=== PATIENT | male | born 1980 | race Caucasian/White ===

== ENCOUNTER 2022-09-19 11:00 | Emergency (ER) | payer BC ==
[2022-09-19 11:30] VITALS: TEMP 98.3
[2022-09-19] MEDS ORDERED: PANTOPRAZOLE 40 MG/10 ML VIAL IVP STA (11:40)
[2022-09-19] MEDS ORDERED: SODIUM CHLORIDE 0.9% 1,000 ML IV STA (11:40)
--- NOTE | 2022-09-19 11:45 | ED ---
Abdominal Pain HPI - General Chief Complaint: Abdominal Pain Stated Complaint: poss appy Time Seen by Provider: 09/19/22 11:31 Source: patient, RN notes reviewed, old records reviewed Mode of arrival: ambulatory - History of Present Illness Initial Comments: Nontoxic-appearing 42-year-old male presents to the emergency room sent by his primary care doctor for evaluation and possible appendicitis. Patient states he developed abdominal pain that was periumbilical yesterday with nausea. Pain progressively getting worse throughout the day today. Denies any fevers. Nausea but no vomiting. Normal bowel movement this morning. Does have a history of bilateral inguinal hernia repair. Is a 15 cigarette a day smoker. MD Complaint: abdominal pain -: days(s) (2) Location: periumbilical Migration to: no migration Severity scale (1-10): 4 Quality: aching Consistency: constant Improves With: nothing Associated Symptoms: nausea, other (Decreased appetite) - Related Data Previous Rx's Medication Instructions Recorded Famotidine [Pepcid] 20 mg PO BID #28 tablet 09/19/22 Allergies Allergy/AdvReac Type Severity Reaction Status Date / Time lidocaine Allergy Unknown Verified 09/19/22 11:30 [From Zilacaine Patch] Review of Systems ROS Statement: Those systems with pertinent positive or pertinent negative responses have been documented in the HPI. ROS Other: All systems not noted in ROS Statement are negative. Past Medical History Past Medical History: No Reported History History of Any Multi-Drug Resistant Organisms: None Reported Past Surgical History: Hernia Repair Past Psychological History: No Psychological Hx Reported Smoking Status: Current every day smoker Past Alcohol Use History: None Reported Past Drug Use History: None Reported General Exam General appearance: alert, in no apparent distress Head exam: Present: atraumatic, normocephalic Eye exam: Present: normal appearance. Absent: scleral icterus, conjunctival injection, periorbital swelling Respiratory exam: Present: normal lung sounds bilaterally. Absent: respiratory distress, wheezes, rales, rhonchi, stridor, chest wall tenderness, accessory muscle use Cardiovascular Exam: Present: regular rate GI/Abdominal exam: Present: soft, tenderness (. Umbilical), normal bowel sounds. Absent: distended, guarding, rebound, rigid Extremities exam: Present: normal inspection, full ROM, normal capillary refill. Absent: tenderness, pedal edema Back exam: Absent: tenderness, CVA tenderness (R), CVA tenderness (L), rash noted Neurological exam: Present: alert, oriented X3 Psychiatric exam: Present: normal affect, normal mood Skin exam: Present: warm, dry, normal color. Absent: cyanosis, diaphoretic, petechiae, pallor Course Vital Signs 09/19/22 09/19/22 11:26 14:09 Temperature 98.3 F Pulse Rate 96 80 Respiratory 16 18 Rate Blood Pressure 121/51 118/74 O2 Sat by Pulse 100 98 Oximetry Medical Decision Making - Medical Decision Making CT abdomen and pelvis shows no suspicious abdomen to account for abdominal pain. Appendix normal as visualized. Labs show no evidence of leukocytosis. Hemoglobin and hematocrit is stable and x-rays are unremarkable. EKG was performed in triage showing sinus rhythm with ventricular rate of 62, LA interval 0.140, QRS 0.0, QTC 0.399, normal axis. Patient was given Protonix and IV fluids with complete pain relief. This may be a viral gastritis. He was prescribed Pepcid. Instructed to follow-up with his primary care doctor and return to the emergency room nor concerning symptoms. Case discussed with Dr. Crowley - Lab Data Result diagrams: 09/19/22 11:49 09/19/22 11:49 Lab Results 09/19/22 09/19/22 09/19/22 Range/Units 11:49 11:49 11:49 WBC 7.8 (3.8-10.6) k/uL RBC 4.97 (4.30-5.90) m/uL Hgb 14.6 (13.0-17.5) gm/dL Hct 42.5 (39.0-53.0) % MCV 85.5 (80.0-100.0) fL MCH 29.4 (25.0-35.0) pg MCHC 34.4 (31.0-37.0) g/dL RDW 13.1 (11.5-15.5) % Plt Count 216 (150-450) k/uL MPV 7.4 Neutrophils % 65 % Lymphocytes % 25 % Monocytes % 4 % Eosinophils % 3 % Basophils % 1 % Neutrophils # 5.1 (1.3-7.7) k/uL Lymphocytes # 2.0 (1.0-4.8) k/uL Monocytes # 0.3 (0-1.0) k/uL Eosinophils # 0.2 (0-0.7) k/uL Basophils # 0.1 (0-0.2) k/uL Sodium 139 (137-145) mmol/L Potassium 3.9 (3.5-5.1) mmol/L Chloride 105 (98-107) mmol/L Carbon Dioxide 27 (22-30) mmol/L Anion Gap 7 mmol/L BUN 14 (9-20) mg/dL Creatinine 0.76 (0.66-1.25) mg/dL Est GFR (CKD-EPI)AfAm >90 (>60 ml/min/1.73 sqM) Est GFR (CKD-EPI)NonAf >90 (>60 ml/min/1.73 sqM) Glucose 97 (74-99) mg/dL Plasma Lactic Acid Jose Maria 0.8 (0.7-2.0) mmol/L Calcium 8.8 (8.4-10.2) mg/dL Total Bilirubin 0.4 (0.2-1.3) mg/dL AST 25 (17-59) U/L ALT 23 (4-49) U/L Alkaline Phosphatase 63 (38-126) U/L Total Protein 6.9 (6.3-8.2) g/dL Albumin 4.3 (3.5-5.0) g/dL Amylase 46 (30-110) U/L Lipase 59 (23-300) U/L - EKG Data EKG shows normal: sinus rhythm (Ventricular rate 62, LA interval 0.140, QRS 0.90, QTC 0.399; sinus rhythm; normal axis) Disposition Clinical Impression: Abdominal pain Disposition: HOME SELF-CARE Condition: Good Instructions (If sedation given, give patient instructions): Abdominal Pain (ED) Additional Instructions: Increase your fluid intake. Take Pepcid as prescribed. Follow-up with the primary care doctor within the next week for reevaluation. Return to the emergency room with any new or concerning symptoms including right lower quadrant pain, fevers or persistent nausea vomiting. Prescriptions: Famotidine [Pepcid] 20 mg PO BID #28 tablet Is patient prescribed a controlled substance at d/c from ED?: No Referrals: Dilip Love MD [Primary Care Provider] - 1-2 days Time of Disposition: 13:45
[2022-09-19 12:02] LABS: Basophils # (A) 0.1 k/uL (0-0.2); Basophils % (A) 1 %; Eosinophils # (A) 0.2 k/uL (0-0.7); Eosinophils % (A) 3 %; HCT 42.5 % (39.0-53.0); HGB 14.6 gm/dL (13.0-17.5); Lymphocytes % (A) 25 %; MCH 29.4 pg (25.0-35.0); MCHC 34.4 g/dL (31.0-37.0); MCV 85.5 fL (80.0-100.0); Mean Platelet Volume 7.4; Monocytes # (A) 0.3 k/uL (0-1.0); Monocytes % (A) 4 %; Neutrophils # (A) 5.1 k/uL (1.3-7.7); Neutrophils % (A) 65 %; Platelet Count 216 k/uL (150-450); RBC 4.97 m/uL (4.30-5.90); RDW 13.1 % (11.5-15.5); WBC 7.8 k/uL (3.8-10.6)
[2022-09-19 12:22] LABS: Albumin 4.3 g/dL (3.5-5.0); Amylase 46 U/L (30-110); Anion Gap 7 mmol/L; Carbon Dioxide 27 mmol/L (22-30); Chloride 105 mmol/L (98-107); Glucose 97 mg/dL (74-99); Potassium 3.9 mmol/L (3.5-5.1); Sodium 139 mmol/L (137-145); Total Protein 6.9 g/dL (6.3-8.2)
[2022-09-19 12:23] LABS: ALT 23 U/L (4-49); AST 25 U/L (17-59); African American GFR (CKD) >90 (>60 ml/min/1.73 sqM); Alkaline Phosphatase 63 U/L (38-126); Blood Urea Nitrogen 14 mg/dL (9-20); Calcium 8.8 mg/dL (8.4-10.2); Lipase 59 U/L (23-300); Non-African American GFR(CKD) >90 (>60 ml/min/1.73 sqM); Total Bilirubin 0.4 mg/dL (0.2-1.3)
--- NOTE | 2022-09-19 13:27 | CT ---
EXAMINATION TYPE: CT abdomen pelvis w con DATE OF EXAM: 09/19/2022 COMPARISON: None INDICATION: Abdominal pain DLP: 709.5 mGycm, Automated exposure control for dose reduction was used. CONTRAST: 100 ml mL of Isovue 300. Study performed without Oral Contrast TECHNIQUE: Axial images were obtained from above the diaphragm to the pubic rami in the axial plane a t 5 mm thick sections. Reconstructed images are reviewed on the computer in the coronal plane. FINDINGS: Limited CT sections are obtained the lung bases. The lung bases are clear. CT ABDOMEN: Liver: Normal Spleen: Normal Pancreas: Normal Adrenal glands: The adrenal glands are normal. Gallbladder: Normal Kidneys: No masses are evident. No hydronephrosis is present. No cysts are present. No renal stone s Aorta: Normal Inferior vena cava: Normal. CT PELVIS: Loops of bowel within the abdomen and pelvis are normal. This study is without oral contrast limi ting bowel evaluation Appendix: Normal as visualized. Urinary bladder: Normal. Genitourinary structures: Prostate is mildly prominent Osseous structures: No suspicious lytic or sclerotic lesions. IMPRESSIONS: 1. No suspicious abnormality to account for abdominal pain. Follow-up be performed as clinically ind icated
[2022-09-19 14:11] VITALS: BP 118/74; PULSE 80; RESP 18
== END 2022-09-19 14:10 | disposition home or self-care (01) ==
LOC: EC 11:00
DX: R10.9 Unspecified abdominal pain (principal); F17.210 Nicotine dependence, cigarettes, uncomplicated; Z88.4 Allergy status to anesthetic agent
CPT/HCPCS: 36415; 93005; 80053; 82150; 83605; 83690; 85025; 74177; 99284; 96374; 96361; C9113; Q9967